=== PATIENT | male | born 1985 | race Hispanic/Latino ===

== ENCOUNTER 2016-11-18 10:19 | Observation (INO) | payer MEDICAID ==
[2016-11-18] MEDS ORDERED: Sodium Chloride 0.9% 1,000 ML IV ONE ×2 (11:41→11:43)
[2016-11-18 11:57] LABS: BASO # 0.1 K/uL (0.0-0.2); BASO % 0.3 % (0.0-2.0); EOS % 0.2 % (0.0-4.0); HEMATOCRIT 43.8 % (35.0-51.0); LYMPH # 1.1 K/uL (1.0-4.3); LYMPH % 6.2 % (20.0-40.0); MEAN CELL VOLUME 86.2 fL (80.0-94.0); MEAN CORPUSCULAR HEMOGLOBIN 30.3 pg (27.0-31.0); MEAN CORPUSCULAR HGB CONC 35.2 g/dL (33.0-37.0); MEAN PLATELET VOLUME 7.5 fL (7.2-11.7); MONO # 1.1 K/uL (0.0-0.8); MONO % 5.8 % (0.0-10.0); PLATELET COUNT 332 K/uL (130-400); RED CELL DISTRIBUTION WIDTH 12.5 % (11.5-14.5); WHITE BLOOD COUNT 18.5 K/uL (4.8-10.8)
[2016-11-18 12:08] LABS: CHLORIDE 96 mmol/L (98-107)
[2016-11-18 12:09] LABS: SODIUM 134 mmol/L (132-148)
[2016-11-18] MEDS ORDERED: Sodium Chloride 0.9% 2,000 ML ONE (12:09)
[2016-11-18 12:11] LABS: ALB/GLOB RATIO 1.2 (1.0-2.1); AST/SGOT 18 U/L (17-59); BILIRUBIN,TOTAL 0.9 mg/dL (0.2-1.3); BLOOD UREA NITROGEN 10 mg/dL (9-20); CARBON DIOXIDE 29 mmol/L (22-30); GFR AFRICAN-AMERICAN > 60; TOTAL PROTEIN 7.6 g/dL (6.3-8.3)
[2016-11-18 12:12] LABS: ALKALINE PHOSPHATASE 86 U/L (38-126); ALT/SGPT 27 U/L (21-72); CALCIUM 8.8 mg/dl (8.6-10.4); GLUCOSE,RANDOM 106 mg/dL (75-110)
[2016-11-18 12:34] LABS: RBC URINE < 1 /hpf (0-3); URINE BILIRUBIN NEGATIVE (NEGATIVE); URINE BLOOD NEGATIVE (NEGATIVE); URINE COLOR Yellow (YELLOW); URINE GLUCOSE (UA) NORMAL (Normal); URINE KETONE NEGATIVE (NEGATIVE); URINE LEUKOCYTE ESTERASE NEG Leu/uL (Negative); URINE PROTEIN NEGATIVE (NEGATIVE); URINE UROBILINOGEN NORMAL mg/dL (0.2-1.0); WBC URINE 1 /hpf (0-5)
[2016-11-18 12:36] LABS: NEUTROPHIL 90 % (50-75); TOTAL CELLS COUNTED 100
--- NOTE | 2016-11-18 13:06 | C.PDOC ---
History Of Present Illness 31 year old patient presents to the ED complaining of feeling dizziness and light headedness prior to arrival. Patient states he was at home and was changing a toddler's diaper when he nearly passed out. Patient states he fell to the ground, but denies any injury. He notes his dizziness and light headedness caused him to fall. Patient also states he has been feeling weak for the past week. He had associated symptoms of headache, cough, sore throat, fever , chills, and body aches. His son was sick with an URI the week prior to the patient's symptoms starting. Patient denies nausea, vomiting, diarrhea, chest pain, shortness of breath, recent travel, or urinary symptoms. Patient reports he had a similar episode with dizziness and falling last year, but he was vomiting the day before at that time. Time Seen by Provider: 11/18/16 10:53 Chief Complaint (Nursing): Syncope History Per: Patient History/Exam Limitations: no limitations Onset/Duration Of Symptoms: Days (1 week ago), Worse Since (today) Current Symptoms Are (Timing): Still Present Activity At Onset Of Symptoms: Standing Associated Symptoms Preceding Syncopal Episode: Lightheadedness Seizure Or Post-ictal Symptoms: None Fall Associated With With Symptoms: No Injury As Result Of Fall Severity: Mild Pain Scale Rating Of: 3 Recent travel outside of the [place]: No Past Medical History Reviewed: Historical Data, Nursing Documentation, Vital Signs Vital Signs: Last Vital Signs Temp 98.8 F 11/18/16 16:52 Pulse 78 11/18/16 16:52 Resp 18 11/18/16 16:52 BP 115/74 11/18/16 16:52 Pulse Ox 97 11/18/16 16:52 Surgical History: Appendectomy Family History: States: Unknown Family Hx - Social History Hx Alcohol Use: Yes Hx Substance Use: No - Immunization History Hx Influenza Vaccination: No Review Of Systems Except As Marked, All Systems Reviewed And Found Negative. Constitutional: Positive for: Fever, Chills, Other (body aches) ENT: Positive for: Throat Pain Cardiovascular: Positive for: Light Headedness. Negative for: Chest Pain Respiratory: Positive for: Cough. Negative for: Shortness of Breath Gastrointestinal: Negative for: Nausea, Vomiting, Abdominal Pain, Diarrhea Neurological: Positive for: Headache, Dizziness Physical Exam - Physical Exam Appears: Non-toxic, No Acute Distress Skin: Warm, Dry Head: Atraumatic, Normacephalic Eye(s): bilateral: Normal Inspection, PERRL, EOMI Ear(s): Bilateral: Normal Nose: Normal, No Flaring, No Discharge Oral Mucosa: Dry, No Drooling, No Trismus Throat: Normal, No Erythema, No Exudate, No Drooling, No Mass Neck: Normal, Normal ROM, No Decreased ROM, Trachea Midline, Supple Lymphatic: No Adenopathy Chest: Symmetrical Cardiovascular: Rhythm Regular, No Edema, No Friction Rub, No Murmur Respiratory: Normal Breath Sounds, No Decreased Breath Sounds, No Accessory Muscle Use, No Rales, No Rhonchi, No Stridor, No Wheezing Gastrointestinal/Abdominal: Normal Exam, Bowel Sounds, Soft, No Tenderness, No Organomegaly, No Mass, No Distention, No Guarding, No Rebound Back: Normal Inspection, No CVA Tenderness, No Vertebral Tenderness Extremity: Normal ROM, No Tenderness, No Swelling Extremity: Bilateral: Atraumatic, Normal Color And Temperature, Normal ROM Neurological/Psych: Oriented x3, Normal Speech, Normal Cognition, Normal Cranial Nerves, Normal Motor, Normal Sensation Gait: Steady ED Course And Treatment - Laboratory Results Result Diagrams: 11/18/16 15:49 11/18/16 11:49 Lab Interpretation: Abnormal Interpretation Of Abnormal: WBC 18, w/ L shifts, (+) bands 6 ECG: Interpreted By Ms ECG Rhythm: Sinus Rhythm O2 Sat by Pulse Oximetry: 98 (room air) Pulse Ox Interpretation: Normal - Radiology CXR: Interpreted by Ms CXR Interpretation: Yes: No Acute Disease Medical Decision Making Medical Decision Making: Impression: 31 y/o male with dizziness and light headedness Plan: * EKG * Labs * Chest x-ray * IV fluids ED OBSERVATION Time of observation admission: 11:45 - Observation admission statement Patient is being placed in observation because:: Due to episode of near syncope and dehydration - Goals of Observation Goals of observation are:: To monitor patient's signs, symptoms and response to treatment. - Progress Note Progress Note: 11/18/16 14:12 Labs reviewed. White count with left shift, 18.5 WBC, bands 6. CXR negative, EKG normal sinus 70 BPM. On reevaluation, patient states feeling better, with mild headache. No chest pain, difficulty breathing, abdominal pain or vomiting. Neck is supple with no signs of meningismus. Will continue to observe. Pt finished 2 L normal saline. Will give another 2 L saline and repeat CBC. Given tylenol for headache. 11/18/16 16:20 After 2 more L of NS, repeat CBC drawn. Shows WBC is 12.3, (-) bands. Lab results d/w the patient. On re-evaluation, patient is laying in bed comfortably in no acute distress, reports no dizziness, no headache, no CP, no SOB, no abd pain, no N/V/D. On exam, patient remains awake, alert and oriented x3. Neck is supple with no meningismus, lungs clear, cardiac RRR, abdomen remains soft and nontender, neuro shows no focal findings. Based on history, exam and diagnostic results, plan will be for outpatient f/u with referral physician. Advised to bedrest, drink plenty of fluids. Patient verbalize understanding of diagnosis and further plan of care. I have given the patient opportunity to ask questions. Follow up with the referral physician in 2 days without fail. Return to the ER at any time for any new or worsening symptoms. Disposition - Disposition Disposition: HOME/ ROUTINE Disposition Time: 11:45 (Pt placed in ED observation) Condition: GOOD - Clinical Impression Clinical Impression: Near syncope, Dehydration, Viral illness - PA / [employer] MECH[employer]IC / Resident Statement MD/DO has reviewed & agrees with the documentation as recorded. - Scribe Statement The provider has reviewed the documentation as recorded by the Scribe Danica Pinto All medical record entries made by the Scribe were at my direction and personally dictated by me. I have reviewed the chart and agree that the record accurately reflects my personal performance of the history, physical exam, medical decision making, and the department course for this patient. I have also personally directed, reviewed, and agree with the discharge instructions and disposition.
[2016-11-18] MEDS ORDERED: Sodium Chloride 0.9% 1,000 ML ONE ×2 (13:27→15:11)
[2016-11-18] MEDS ORDERED: Sodium Chloride 0.9% 2,000 ML IV SCH (13:30)
[2016-11-18] MEDS: Sodium Chloride 0.9% 1,000 ML IV SCH ×2 (13:30→15:13)
--- NOTE | 2016-11-18 14:09 | RAD ---
HISTORY: fever, cough COMPARISON: None available. TECHNIQUE: Chest PA and lateral FINDINGS: LUNGS: No focal consolidation. Please note that chest x-ray has limited sensitivity for the detection of pulmonary masses. PLEURA: No significant pleural effusion identified. No definite pneumothorax . CARDIOVASCULAR: The cardiomediastinal silhouette appears within normal limits of size. OSSEOUS STRUCTURES: No acute osseous abnormality identified. VISUALIZED UPPER ABDOMEN: Unremarkable. OTHER FINDINGS: None. IMPRESSION: No focal consolidation, significant pleural effusion, or definite pneumothorax identified.
[2016-11-18 15:54] LABS: BASO # 0.1 K/uL (0.0-0.2); BASO % 0.5 % (0.0-2.0); EOS % 0.4 % (0.0-4.0); HEMATOCRIT 38.4 % (35.0-51.0); LYMPH # 1.5 K/uL (1.0-4.3); LYMPH % 12.3 % (20.0-40.0); MEAN CELL VOLUME 86.1 fL (80.0-94.0); MEAN CORPUSCULAR HGB CONC 34.8 g/dL (33.0-37.0); MEAN PLATELET VOLUME 7.3 fL (7.2-11.7); MONO # 0.8 K/uL (0.0-0.8); MONO % 6.3 % (0.0-10.0); RED CELL DISTRIBUTION WIDTH 12.7 % (11.5-14.5); WHITE BLOOD COUNT 12.3 K/uL (4.8-10.8)
[2016-11-18 16:53] VITALS: BP 115/74; PULSE 78; RESP 18; TEMP 98.8
[2016-11-18 17:19] VITALS: O2SAT 98
--- NOTE | 2016-11-19 18:31 | CARD ---
APPROVED REPORT EKG Measurement Heart [id number] <Conclusion> Normal sinus rhythm Normal ECG
== END 2016-11-18 16:54 | disposition home or self-care (01) ==
LOC: C.ER 10:19 → C.9OBSV 11:45
PROVIDERS: ADMIT Emergency Medicine; ATTEND Emergency Medicine
DX: R55 Syncope and collapse (principal); B34.9 Viral infection, unspecified; E86.0 Dehydration
CPT/HCPCS: 36415; 71020; 80053; 81001; 85025; 87040; 87086; 93005; 96360; 99285; J7040